=== PATIENT | male | born 1950 | race Caucasian/White ===

== ENCOUNTER 2017-06-22 18:28 | Inpatient (IN) | payer OTHER ==
[~2017-06-22] VITALS: Ht 175.3 cm; Wt 130.2 kg
[2017-06-22 18:28] VITALS: BP 127/71
[2017-06-22] MEDS ORDERED: Digoxin 0.125mg tab ORAL ONE (19:00)
[2017-06-22 20:04] VITALS: BP 125/71
[2017-06-22 20:23] LABS: BASOPHILS % (AUTO) 1.8 % (0.0-2.0); EOSINOPHILS % (AUTO) 5.1 % (0.0-3.0); LYMPHOCYTES % (AUTO) 17.9 % (20.0-45.0); MEAN CORPUSCULAR HEMOGLOBIN 31.3 PG (27.0-31.0); MEAN CORPUSCULAR HGB CONC 35.1 G/DL (32.0-36.0); MEAN CORPUSCULAR VOLUME 89 FL (80-99); MEAN PLATELET VOLUME 6.8 FL (6.5-10.1); MONOCYTES % (AUTO) 9.9 % (1.0-10.0); NEUTROPHILS % (AUTO) 65.3 % (45.0-75.0); PLATELET COUNT 188 K/UL (150-450); RED BLOOD COUNT 4.72 M/UL (4.70-6.10); RED CELL DISTRIBUTION WIDTH 12.9 % (11.6-14.8); WHITE BLOOD COUNT 7.7 K/UL (4.8-10.8)
[2017-06-22 20:30] LABS: APPEARANCE,URINE CLEAR; KETONES,URINE NEGATIVE (NEGATIVE); LEUKOCYTE ESTERASE ,URINE NEGATIVE (NEGATIVE); NITRITE,URINE NEGATIVE (NEGATIVE); PH,URINE 5 (4.5-8.0); PROTEIN,URINE NEGATIVE (NEGATIVE); UROBILINOGEN,URINE NORMAL MG/DL (0.0-1.0)
[2017-06-22 20:44] LABS: INR 1.1 (0.9-1.1)
[2017-06-22 20:45] LABS: TROPONIN I < 0.30 ng/mL (<=0.30)
[2017-06-22 20:46] LABS: ALANINE AMINOTRANSFERASE 31 U/L (3-41); ALBUMIN/GLOBULIN RATIO 1.2 (1.0-2.7); ANION GAP 19 (5-15); ASPARTATE AMINO TRANSFERASE 23 U/L (5-40); CALCIUM 9.3 mg/dL (8.6-10.2); CARBON DIOXIDE 21 mEQ/L (20-30); CHLORIDE 92 mEQ/L (98-107); CREATININE 3.5 mg/dL (0.7-1.2); GLOMERULAR FILTRATION RATE 17.5 mL/min (>60); HEMOLYSIS 17; LIPASE 56 U/L (< 60); POTASSIUM 3.2 mEQ/L (3.4-4.9); SODIUM 132 mEQ/L (135-145); TOTAL PROTEIN 7.3 g/dL (6.6-8.7)
[2017-06-22] MEDS ORDERED: ATORVASTATIN CA40 MG ORAL (20:46)
[2017-06-22] MEDS ORDERED: ASPIRIN EC81 MG ORAL (20:46)
[2017-06-22] MEDS ORDERED: CARVEDILOL25 MG ORAL (20:46)
[2017-06-22] MEDS ORDERED: METOLAZONE5 MG PO (20:46)
[2017-06-22] MEDS ORDERED: ZESTRIL2.5 MG ORAL (20:46)
[2017-06-22] MEDS ORDERED: POTASSIUM CHLO10 MEQ ORAL (20:46)
[2017-06-22] MEDS ORDERED: ELIQUIS5 MG PO (20:46)
[2017-06-22] MEDS ORDERED: LORATADINE10 M2 PO (20:50)
[2017-06-22] MEDS ORDERED: FUROSEMIDE40 MG ORAL (20:50)
[2017-06-22] MEDS ORDERED: AMIODARONE HCL200 MG ORAL (20:54)
[2017-06-22] MEDS ORDERED: GLUCOTROL10 MG ORAL (20:54)
[2017-06-22] MEDS ORDERED: LYRICA200 MG ORAL (20:55)
--- NOTE | 2017-06-22 21:59 | Emergency Room Report ---
History of Present Illness General Chief Complaint: Nausea Source: Patient Present Illness HPI 66-year-old male presents ED for evaluation. Patient states that for the last 8 days he's been feeling nauseous and unable to keep down food. States his abdomen feels distended. Is denying any abdominal pain. Denies any fevers or chills. Denies any chest pain or shortness of breath. Patient has history of CABG. History of a flutter. did not take any of his medications today. No other aggravating relieving factors. 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 Hx Hypertension: Yes Hx Diabetes: Yes Review of Systems All Other Systems: negative except mentioned in HPI Physical Exam Vital Signs Date Time Temp Pulse Resp B/P Pulse Ox O2 Delivery O2 Flow Rate FiO2 06/22/17 18:28 63 14 127/71 100 Room Air 06/22/17 18:52 97.9 Sp02 EP Interpretation: reviewed, normal General Appearance: no apparent distress, alert, GCS 15, non-toxic, obese Head: normocephalic, atraumatic Eyes: bilateral eye PERRL, bilateral eye normal inspection ENT: hearing grossly normal, normal pharynx, no angioedema, normal voice Neck: full range of motion, supple/symm/no masses Respiratory: chest non-tender, lungs clear, normal breath sounds, speaking full sentences Cardiovascular #1: regular rate, rhythm, no edema Cardiovascular #2: 2+ carotid (R), 2+ carotid (L), 2+ radial (R), 2+ radial (L) , 2+ dorsalis pedis (R), 2+ dorsalis pedis (L) Gastrointestinal: normal bowel sounds, non tender, soft, no guarding, no rebound, distended Rectal: deferred Genitourinary: normal inspection, no CVA tenderness Musculoskeletal: back normal, gait/station normal, normal range of motion, non- tender Neurologic: alert, oriented x3, responsive, motor strength/tone normal, sensory intact, speech normal Psychiatric: judgement/insight normal, memory normal, mood/affect normal, no suicidal/homicidal ideation Reflexes: 3+ bicep (R), 3+ bicep (L), 3+ tricep (R), 3+ tricep (L), 3+ knee (R) , 3+ knee (L) Skin: normal color, no rash, warm/dry, well hydrated Lymphatic: no adenopathy Medical Decision Making Diagnostic Impression: Primary Impression: Atrial fibrillation and flutter Additional Impressions: Nausea and vomiting in adult patient Renal insufficiency ER Course Hospital Course 66-year-old male presents to ED with nausea and vomiting x 8 days. 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 After initial history and physical I ordered labs, IV fluids, UA, pain medication and CT scan During assessment patient is having episodes of atrial flutter with tachycardia. Patient states he did not take his medications today. patient was initially triaged incorrectly under name Oleksandr Jackson. labs/orders were redone under this name Labs - no leukocytosis, Hb/Hct stable. BUN/Cr elevated. trop negative. digoxin level sendout EKG - aflutter CXR - cardiomegaly, sternotomy wires patient given digoxin with HR improved. patient has known history of renal insufficiency CT abdomen and pelvis - no acute process because of insurance patient will be transferred I feel this is a highly complex case requiring extensive working including EKG/ Rhythm strip, Xray/CT/US, Blood/urine lab work, repeat exams while in ED, and administration of strong opiates/narcotics for pain control, admission to hospital or close patient follow up. Diagnosis - atrial fibrillation and flutter, nausea/vomiting, renal insufficiency transferred in serious condition Labs Test 06/22/17 20:00 06/22/17 20:13 White Blood Count 7.7 K/UL (4.8-10.8) Red Blood Count 4.72 M/UL (4.70-6.10) Hemoglobin 14.8 G/DL (14.2-18.0) Hematocrit 42.1 % (42.0-52.0) Mean Corpuscular Volume 89 FL (80-99) Mean Corpuscular Hemoglobin 31.3 PG (27.0-31.0) Mean Corpuscular Hemoglobin Concent 35.1 G/DL (32.0-36.0) Red Cell Distribution Width 12.9 % (11.6-14.8) Platelet Count 188 K/UL (150-450) Mean Platelet Volume 6.8 FL (6.5-10.1) Neutrophils (%) (Auto) 65.3 % (45.0-75.0) Lymphocytes (%) (Auto) 17.9 % (20.0-45.0) Monocytes (%) (Auto) 9.9 % (1.0-10.0) Eosinophils (%) (Auto) 5.1 % (0.0-3.0) Basophils (%) (Auto) 1.8 % (0.0-2.0) Prothrombin Time 12.0 SEC (9.30-11.50) Prothromb Time International Ratio 1.1 (0.9-1.1) Activated Partial Thromboplast Time 29 SEC (23-33) Sodium Level 132 mEQ/L (135-145) Potassium Level 3.2 mEQ/L (3.4-4.9) Chloride Level 92 mEQ/L (98-107) Carbon Dioxide Level 21 mEQ/L (20-30) Anion Gap 19 (5-15) Blood Urea Nitrogen 85 mg/dL (7-23) Creatinine 3.5 mg/dL (0.7-1.2) Estimat Glomerular Filtration Rate 17.5 mL/min (>60) Glucose Level 241 mg/dL (74-106) Calcium Level 9.3 mg/dL (8.6-10.2) Total Bilirubin 0.8 mg/dL (0.0-1.2) Aspartate Amino Transf (AST/SGOT) 23 U/L (5-40) Alanine Aminotransferase (ALT/SGPT) 31 U/L (3-41) Alkaline Phosphatase 44 U/L (40-129) Total Creatine Kinase 161 U/L (38-174) Creatine Kinase MB 3.0 ng/mL (< 6.7) Creatine Kinase MB Relative Index 1.8 Troponin I < 0.30 ng/mL (<=0.30) Total Protein 7.3 g/dL (6.6-8.7) Albumin 4.1 g/dL (3.5-5.2) Globulin 3.2 g/dL Albumin/Globulin Ratio 1.2 (1.0-2.7) Lipase 56 U/L (< 60) Digoxin Level ng/mL (0.5-2.0) Urine Color Pale yellow Urine Appearance Clear Urine pH 5 (4.5-8.0) Urine Specific Schaller 1.015 (1.005-1.035) Urine Protein Negative (NEGATIVE) Urine Glucose (UA) 3+ (NEGATIVE) Urine Ketones Negative (NEGATIVE) Urine Occult Blood Negative (NEGATIVE) Urine Nitrite Negative (NEGATIVE) Urine Bilirubin Negative (NEGATIVE) Urine Urobilinogen Normal MG/DL (0.0-1.0) Urine Leukocyte Esterase Negative (NEGATIVE) EKG Diagnostic Results Rate: normal Rhythm: other - aflutter ST Segments: no acute changes ASA given to the pt in ED: No Rhythm Strip Diag. Results EP Interpretation: yes Rhythm: no PVC's, no ectopy Chest X-Ray Diagnostic Results Chest X-Ray Diagnostic Results : Chest X-Ray Ordered: Yes # of Views/Limited/Complete: 1 View Indication: Shortness of Breath EP Interpretation: Yes Interpretation: no consolidation, no effusion, no pneumothorax, other - cardiomegaly. sternotomy wires Impression: No acute disease Interpreting ER Provider: Electronically signed by Damon Bailey MD CT/MRI/US Diagnostic Results CT/MRI/US Diagnostic Results : Imaging Test Ordered: CT A/P Impression no acute process Last Vital Signs Date Time Temp Pulse Resp B/P Pulse Ox O2 Delivery O2 Flow Rate FiO2 06/22/17 18:52 97.9 84 18 111/69 94 Room Air Status: improved Disposition: [facility] Condition: Serious Referrals: [facility],REFERRING (PCP) DAMON BAILEY M.D. Jun 22, 2017 21:58
[2017-06-22 22:12] VITALS: BP 123/77
[2017-06-23] VITALS (7 sets, daily range): BP systolic 109–131; BP diastolic 47–76
[2017-06-23] MEDS: Metoprolol 25mg tab ORAL SCH ×2 (10:38→20:52)
[2017-06-23] MEDS: Eliquis 2.5mg tablet ORAL SCH ×2 (10:39→18:24)
[2017-06-23] MEDS: Pantoprazole Inj IVP SCH (10:39)
--- NOTE | 2017-06-23 11:46 | Diagnostic Imaging Report ---
Indication: Dyspnea Comparison: None A single view chest radiograph was obtained. Findings: No definite infiltrate or pulmonary vascular congestion identified. Sternotomy noted. The heart is and normal in size. The aorta is mildly enlarged consistent with atherosclerotic vascular disease. The bones are osteopenic. Impression: No acute disease
--- NOTE | 2017-06-23 12:30 | History and Physical Report ---
DATE OF ADMISSION: 06/23/2017 CHIEF COMPLAINT: Nausea and vomiting for 8 days, dehydration, acute on chronic renal failure, atrial fibrillation/flutter with rapid ventricular response. HISTORY OF PRESENT ILLNESS: This is a 66-year-old male, he has a history of ischemic cardiomyopathy, status post two vessel CABG in 2012. He has a history of chronic kidney disease, diabetes, and hypertension. He presented from home with complaints of 8 days of intractable nausea and vomiting. According to the patient, he has been unable to tolerate any POs including liquids. He states he has had normal bowel movements, although less frequent. He also states he has had some swelling in the right lower extremity for the last year. He denies any ill contacts. No recent travel. On evaluation in the emergency room, the patient was noted to have a creatinine of 3.5 with a BUN of 85. According to the patient, his baseline creatinine runs between 3 and 3.5. In light of the patient's persistent nausea and vomiting, he is now admitted for further evaluation and care. PAST MEDICAL HISTORY: His past medical history as above. He has a history of hypertension, diabetes, chronic kidney disease, history of blindness in the left eye, history of cataracts, and history of LV thrombus. CURRENT MEDICATIONS: The patient does not recall. ALLERGIES: None. FAMILY HISTORY: Significant for heart disease and " bone cancer". SOCIAL HISTORY: Negative for tobacco, ethanol, and drugs. REVIEW OF SYSTEMS: General: No fever or chills. HEENT: No headaches or visual changes. Cardiopulmonary: No chest pain or shortness of breath. Gastrointestinal: Positive nausea and vomiting. No diarrhea. Genitourinary: No urgency or frequency. Musculoskeletal: No dependent swelling. Neurologic: No evidence of seizures. PHYSICAL EXAMINATION: GENERAL: The patient is a well-developed male, in no apparent distress. He is awake and alert. VITAL SIGNS: Temperature was 98.7 degrees, pulse 119, and blood pressure 117/65. HEENT: His pupils are equal, round, and reactive to light. Oropharynx is clear. NECK: Supple. HEART: Regular. LUNGS: Clear. ABDOMEN: Soft, nontender, and nondistended. EXTREMITIES: Without clubbing or cyanosis. There is 3+ edema in the left lower extremity and 2+ in the right lower extremity. LABORATORY AND DIAGNOSTIC DATA: Coags are normal. White count 7, hemoglobin 14, hematocrit 42, and platelets 188,000. Sodium 132, potassium 3.2, chloride 95, bicarbonate 21, BUN 85, creatinine 3.5, and glucose of 241. Amylase, lipase, and LFTs were unremarkable. UA was clear. ASSESSMENT: This is a pleasant male admitted with intractable nausea and vomiting, acute on chronic renal failure, atrial fibrillation with rapid ventricular response. 1. Acute on chronic renal failure. 2. Intractable nausea and vomiting, unclear etiology. 3. Dehydration. 4. Hypertension. 5. Diabetes. 6. History of ischemic cardiomyopathy. 7. Atrial fibrillation/flutter with rapid ventricular response. PLAN: IV hydration and antiemetic therapy. The patient has a family member, who is currently bringing in his medications. We will resume the patient's Eliquis. We will start the patient on beta-perez for rate control. GI, Renal, and Cardiology consultations will be obtained. Jun Grayson M.D. DR: SHAUN JOB#: [id number] CC:
--- NOTE | 2017-06-23 16:01 | Diagnostic Imaging Report ---
Indication:Elevated Bun and Creatinine. Technique: Grayscale and duplex Doppler imaging of the kidneys performed. Comparison: None Findings: Renal echogenicity is normal. There is an echogenic lesion in the left kidney probably an angiomyolipoma measuring 1 cm. Left renal cyst is 1.3 CM. Right renal cyst 2.4 CM demonstrated. Other smaller cysts are noted as well. There is no hydronephrosis. Both kidneys measure between 10 and 11 cm. IVC and urinary bladder are unremarkable. The liver appears echogenic consistent with fatty infiltration. Impression: Bilateral renal cysts. 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
[2017-06-24] VITALS: BP 126/77
--- NOTE | 2017-06-24 01:00 | Consultation ---
DATE OF CONSULTATION: 06/23/2017 CARDIOLOGY CONSULTATION CONSULTING PHYSICIAN: Oleksandr Coats M.D. REQUESTING PHYSICIAN: Jun Grayson M.D. REASON FOR CONSULTATION: Atrial flutter in the setting of ischemic heart disease. HISTORY OF PRESENT ILLNESS: This is a 66-year-old male with ischemic heart disease, prior coronary artery bypass graft in 2012, and a history of paroxysmal atrial flutter/fibrillation. He presented to the hospital with over a week of intractable nausea and vomiting. He has not been able to tolerate any liquids although he has had normal bowel movements. He has had some swelling in his right lower extremity for about a year with no recent change. He was admitted to the hospital with signs of acute renal failure and hypovolemia. He also had rapid atrial flutter, but now is rate controlled. He has not had any chest pain. PAST MEDICAL HISTORY: Coronary artery disease with prior coronary artery bypass graft, hypertension, paroxysmal atrial fibrillation/flutter, type 2 diabetes mellitus, chronic kidney disease, left eye blindness, and history of atrial thrombus. MEDICATIONS: Reviewed and reconciled. ALLERGIES: None. SOCIAL HISTORY: Negative for smoking, alcohol, or substance abuse. FAMILY HISTORY: Notable for heart disease and bone cancers in some family members. REVIEW OF SYSTEMS: Notable for consideration for cardioversion in 2016 that was canceled due to the presence of a thrombus. He has been on anticoagulation since. PHYSICAL EXAMINATION: GENERAL: A well developed and well nourished, in no distress. VITAL SIGNS: Afebrile. Blood pressure 124/66, pulse 86, and respirations 18. HEENT: Conjunctivae are pink. Oropharynx clear. NECK: Supple. Jugular venous pressure normal. LUNGS: Clear. CARDIAC: Irregularly irregular. Normal S1 and S2 with no murmur. Median sternotomy scar. ABDOMEN: Obese. EXTREMITIES: With 1+ to 2+ dependent edema on the right and 2+ to 3+ dependent edema on the left lower extremity. LABORATORY DATA: Laboratories reviewed. EKG, atrial flutter, saw tooth pattern. No acute changes otherwise. IMPRESSION: 1. Intractable nausea and vomiting. 2. Hypovolemia and dehydration. 3. Acute on chronic renal failure due to acute tubular necrosis. 4. Atrial flutter with rapid ventricular response, now rate controlled. 5. Ischemic cardiomyopathy with chronic stable angina. 6. Type 2 diabetes mellitus complications. 7. History of atrial thrombus, on anticoagulation. PLAN: 1. Continue cardioembolic prophylaxis with apixaban. 2. Beta-perez for rate control. 3. Gastrointestinal workup for etiology of vomiting and nausea. 4. Intravenous fluid hydration. 5. Cardiac monitoring. 6. Further consideration for cardioversion once gastrointestinal status is stabilized. 7. Check thyroid function. Oleksandr Coats M.D. DR: FIDENCIO JOB#: [id number] CC:
[2017-06-24] MEDS ORDERED: LATANOPROST2.5 ML BOTH EYES (03:03)
[2017-06-24] MEDS ORDERED: TRUSOPT10 ML LEFT EYE ×2 (03:03→07:03)
[2017-06-24] MEDS ORDERED: BRIMONIDINE TART5 ML LEFT EYE (03:03)
[2017-06-24 04:00] VITALS: BP 138/75
[2017-06-24 07:43] VITALS: BP 131/73
[2017-06-24] MEDS: Pantoprazole Inj IVP SCH (08:24)
[2017-06-24] MEDS: Docusate 250mg cap ORAL SCH ×2 (08:24→17:30)
[2017-06-24] MEDS: Eliquis 2.5mg tablet ORAL SCH ×2 (08:24→17:30)
[2017-06-24] MEDS: traMADol 50mg tab ORAL PRN ×2 (08:25→16:17)
[2017-06-24] MEDS: Metoprolol 25mg tab ORAL SCH (08:26)
[2017-06-24] MEDS ORDERED: Milk of Magnesia 30ml Ud ORAL PRN (08:30)
[2017-06-24 08:31] LABS: MAGNESIUM 2.1 mg/dL (1.7-2.5)
[2017-06-24 08:37] LABS: ALBUMIN/GLOBULIN RATIO 1.4 (1.0-2.7); CALCIUM 9.4 mg/dL (8.6-10.2); CREATININE 2.8 mg/dL (0.7-1.2); GLOMERULAR FILTRATION RATE 22.6 mL/min (>60); POTASSIUM 3.7 mEQ/L (3.4-4.9); TOTAL PROTEIN 7.1 g/dL (6.6-8.7)
[2017-06-24 08:42] LABS: THYROID STIMULATING HORMONE 10.05 uIU/mL (0.300-4.500)
[2017-06-24] MEDS ORDERED: Docusate 250mg cap ORAL SCH (09:00)
--- NOTE | 2017-06-24 09:05 | Diagnostic Imaging Report ---
Indication: Abdominal pain Technique: Continuous helical transaxial imaging of the abdomen and pelvis was obtained from the lung bases to the pubic symphysis. No intravenous contrast was administered. Coronal 2-D reformats were also obtained. Total Dose length Product (DLP): [address] Dose Index Volume (CTDIvol): 27 mGy Comparison: none Findings: Lung bases are clear. Aorta is calcified. Gallbladder is grossly unremarkable. Suggestion of low density foci within the kidneys, nonspecific on this exam done without contrast material. Mild fusiform dilatation of the lower abdominal aorta having a maximum diameter of about 3.1 CM noted. No evidence of bowel obstruction. Urinary bladder is unremarkable. There are bilateral inguinal hernias containing fat slightly larger on the left noted. Impression: No acute findings appreciated. Atherosclerotic disease Low-density lesions in both kidneys incompletely assessed. Bilateral inguinal hernias containing fat slightly larger on the left. Normal appendix [facility] has communicated the preliminary results to the Emergency Department. Their findings are largely concordant with this report. The CT scanner at [facility] is accredited by the [employer] and the scans are performed using dose optimization techniques as appropriate to a performed exam including Automatic Exposure control.
--- NOTE | 2017-06-24 09:47 | General Progress Note ---
Assessment/Plan Problem List: (1) Azotemia ICD Codes: R79.89 - Other specified abnormal findings of blood chemistry SNOMED: 086830909 (2) Renal insufficiency ICD Codes: N28.9 - Disorder of kidney and ureter, unspecified; I48.92 - Unspecified atrial flutter SNOMED: 934687656 (3) Nausea and vomiting in adult patient ICD Codes: R11.2 - Nausea with vomiting, unspecified; I48.92 - Unspecified atrial flutter SNOMED: 09904230 (4) Atrial fibrillation and flutter ICD Codes: I48.91 - Unspecified atrial fibrillation; I48.92 - Unspecified atrial flutter SNOMED: 396364207 (5) Systolic and diastolic CHF, chronic ICD Codes: I50.42 - Chronic combined systolic (congestive) and diastolic ( congestive) heart failure SNOMED: 72526400, 621366543641542 Status: stable, progressing Assessment/Plan cont ivf. monitor renal fxn resumed home meds- except acei on anticoagulation advance diet laxatives echo dc planning tomorrow Subjective ROS Limited/Unobtainable: No Constitutional: Reports: malaise, weakness HEENT: Reports: no symptoms Cardiovascular: Reports: no symptoms Respiratory: Reports: no symptoms Gastrointestinal/Abdominal: Reports: nausea Genitourinary: Reports: no symptoms Neurologic/Psychiatric: Reports: no symptoms Endocrine: Reports: no symptoms Hematologic/Lymphatic: Reports: anemia Allergies: Coded Allergies: MILK (Verified Allergy, Unknown, 06/22/17) SOY (Verified Allergy, Unknown, 06/22/17) All Systems: reviewed and negative except above Subjective no events. no vomiting. less nausea. pt home meds reviewed. passing gas but no bowel movements. Objective Last 24 Hour Vital Signs Date Time Temp Pulse Resp B/P Pulse Ox O2 Delivery O2 Flow Rate FiO2 06/24/17 08:26 65 131/73 06/24/17 07:43 97.5 99 18 131/73 97 Room Air 06/24/17 07:37 89 06/24/17 04:00 60 06/24/17 04:00 97.4 63 24 138/75 96 Room Air 06/24/17 00:00 98.4 55 20 126/77 95 Room Air 06/24/17 00:00 55 06/23/17 20:52 70 131/76 06/23/17 20:00 60 06/23/17 20:00 98.1 69 20 131/76 94 06/23/17 16:19 98.1 65 20 117/69 97 Room Air 06/23/17 16:00 65 06/23/17 12:46 98.1 06/23/17 12:00 66 06/23/17 11:48 97.0 64 18 109/55 98 Room Air 06/23/17 10:38 75 110/70 Intake and Output 06/23/17 06/24/17 19:00 07:00 Intake Total 975 ml 750 ml Output Total 1650 ml Balance 975 ml -900 ml Intake Oral 600 ml IV Total 75 ml 750 ml Other 300 ml Output Urine Total 1650 ml # Voids 2 4 # Bowel Movements 1 1 Laboratory Tests 06/24/17 07:50: Sodium Level 136, Potassium Level 3.7, Chloride Level 98, Carbon Dioxide Level 24, Anion Gap 14, Blood Urea Nitrogen 65H, Creatinine 2.8H, Estimat Glomerular Filtration Rate 22.6, Glucose Level 269H, Calcium Level 9.4, Magnesium Level 2.1 , Total Bilirubin 1.0, Aspartate Amino Transf (AST/SGOT) 26, Alanine Aminotransferase (ALT/SGPT) 31, Alkaline Phosphatase 46, Pro-B-Type Natriuretic Peptide 412H, Total Protein 7.1, Albumin 4.2, Globulin 2.9, Albumin/Globulin Ratio 1.4, Thyroid Stimulating Hormone (TSH) 10.050H Height (Feet): 5 Height (Inches): 9.00 Weight (Pounds): 287 General Appearance: WD/WN, alert Neck: supple Cardiovascular: regular rhythm Respiratory/Chest: lungs clear, normal breath sounds Abdomen: normal bowel sounds, non tender, soft, no organomegaly Edema: no edema noted Arm (L), no edema noted Arm (R), no edema noted Leg (L), no edema noted Leg (R), no edema noted Pedal (L), no edema noted Pedal (R), no edema noted Generalized Neurologic: alert Lymphatic: normal anterior cervical (L), normal anterior cervical (R), normal axillary (L), normal axillary (R), normal inguinal (L), normal inguinal (R), normal other, normal posterior cervical (L), normal posterior cervical (R), normal submandibular (L), normal submandibular (R), normal supraclavicular (L), normal supraclavicular (R) LEIA PRATHER Jun 24, 2017 09:46
[2017-06-24] MEDS: Amiodarone 200mg tab ORAL SCH ×2 (10:00→21:38)
[2017-06-24] MEDS: Carvedilol 25mg Tab ORAL SCH ×2 (10:00→21:00)
[2017-06-24] MEDS: Aspirin EC 81mg tab ORAL SCH (10:00)
[2017-06-24] MEDS: Dorzolamide 2% Btl LEFT EYE SCH ×2 (11:20→17:30)
[2017-06-24] MEDS: Brimonidine 0.2% Opth Sol LEFT EYE SCH ×2 (11:20→17:30)
[2017-06-24] MEDS: GlipiZIDE 10mg tab ORAL SCH ×2 (11:20→16:16)
[2017-06-24 12:05] VITALS: BP 132/75
[2017-06-24] MEDS ORDERED: D5NS 1000ml IV ONE (15:18)
--- NOTE | 2017-06-24 16:12 | Cardiology Report ---
APPROVED REPORT EXAM: Two-dimensional and M-mode echocardiogram with Doppler and color Doppler. INDICATION Atrial Flutter M-Mode DIMENSIONS IVSd1.5 (0.7-1.1cm)Left Atrium (MM)4.8 (1.6-4.0cm) LVDd4.3 (3.5-5.6cm)Aortic Root3.8 (2.0-3.7cm) PWd0.9 (0.7-1.1cm)Aortic Cusp Exc.2.0 (1.5-2.0cm) LVDs2.6 (2.5-4.0cm) PWs2.2 cm Technically difficult study due to poor acoustic windows. Study quality precludes accurate assessment of regional wall motion. Mild left ventricular enlargement by 2D. Probably normal left ventricular systolic function and wall motion. Left ventricular ejection fraction estimated to be 55 %. Mild left ventricular hypertrophy. No evidence of pericardial fat or effusion. Mild right atrial and right ventricular enlargement. Left atrial chamber size is within normal limits. Mild focal aortic valve sclerosis with adequate cusp excursion. Mildly thickened mitral valve leaflets with normal excursion. Mild mitral annulus and aortic root calcification. Pulmonic valve not well visualized. Normal tricuspid valve structure. IVC is normal in size with physiologic collapse. A color flow and spectral Doppler study was performed and revealed: No aortic regurgitation. No mitral regurgitation. Mitral inflow velocitie nondiagnostic Mild tricuspid regurgitation. Tricuspid systolic velocities suggests peak right ventricular systolic pressure of 27 mmHg. No pulmonic regurgitation present.
[2017-06-24 16:20] VITALS: BP 93/58
[2017-06-24 20:00] VITALS: BP 108/64
[2017-06-24] MEDS ORDERED: Atorvastatin 80mg tab ORAL SCH (21:00)
[2017-06-25] VITALS: BP 108/66
[2017-06-25] MEDS: traMADol 50mg tab ORAL PRN ×2 (00:31→08:18)
[2017-06-25 04:00] VITALS: BP 114/60
[2017-06-25] MEDS: GlipiZIDE 10mg tab ORAL SCH (06:02)
[2017-06-25 07:15] LABS: ALBUMIN/GLOBULIN RATIO 1.3 (1.0-2.7); CALCIUM 9.1 mg/dL (8.6-10.2); CREATININE 2.8 mg/dL (0.7-1.2); GLOMERULAR FILTRATION RATE 22.6 mL/min (>60); POTASSIUM 3.5 mEQ/L (3.4-4.9); TOTAL PROTEIN 6.9 g/dL (6.6-8.7)
[2017-06-25 08:14] VITALS: BP 113/65
[2017-06-25] MEDS: Pantoprazole Inj IVP SCH (08:17)
[2017-06-25] MEDS: Amiodarone 200mg tab ORAL SCH (08:18)
[2017-06-25] MEDS: Docusate 250mg cap ORAL SCH (08:18)
[2017-06-25] MEDS: Eliquis 2.5mg tablet ORAL SCH (08:19)
[2017-06-25] MEDS: Dorzolamide 2% Btl LEFT EYE SCH (08:19)
[2017-06-25] MEDS: Aspirin EC 81mg tab ORAL SCH (08:19)
[2017-06-25] MEDS: Brimonidine 0.2% Opth Sol LEFT EYE SCH (08:20)
[2017-06-25] MEDS: Carvedilol 25mg Tab ORAL SCH (08:20)
--- NOTE | 2017-06-25 08:48 | Cardiology Report ---
APPROVED REPORT EKG Measurement Heart [id number] Atrial flutter with variable AV block Left axis deviation Low voltage QRS Abnormal ECG
[2017-06-25 10:16] LABS: EOSINOPHILS % (AUTO) 7.1 % (0.0-3.0); LYMPHOCYTES % (AUTO) 18.7 % (20.0-45.0); MEAN CORPUSCULAR HEMOGLOBIN 30.2 PG (27.0-31.0); MEAN CORPUSCULAR HGB CONC 32.7 G/DL (32.0-36.0); MEAN CORPUSCULAR VOLUME 92 FL (80-99); MEAN PLATELET VOLUME 6.8 FL (6.5-10.1); MONOCYTES % (AUTO) 9.9 % (1.0-10.0); NEUTROPHILS % (AUTO) 63.4 % (45.0-75.0); PLATELET COUNT 173 K/UL (150-450); RED BLOOD COUNT 4.78 M/UL (4.70-6.10); RED CELL DISTRIBUTION WIDTH 12.9 % (11.6-14.8); WHITE BLOOD COUNT 7.2 K/UL (4.8-10.8)
--- NOTE | 2017-06-25 10:22 | General Progress Note ---
Assessment/Plan Assessment/Plan GI CONSULT Dictated Symptoms significantly improved with conservative management. Will check stool OB and cultures Advised patient to have outpatient EGD/Colon. Thank you Jesus Alvarez MD Subjective Allergies: Coded Allergies: MILK (Verified Allergy, Unknown, 06/22/17) SOY (Verified Allergy, Unknown, 06/22/17) Objective Last 24 Hour Vital Signs Date Time Temp Pulse Resp B/P Pulse Ox O2 Delivery O2 Flow Rate FiO2 06/25/17 08:20 56 113/65 06/25/17 08:14 98.4 56 20 113/65 95 Room Air 06/25/17 08:00 59 06/25/17 04:00 58 06/25/17 04:00 97.7 69 18 114/60 96 Room Air 06/25/17 00:00 97.3 51 18 108/66 96 Room Air 06/25/17 00:00 57 06/24/17 21:00 56 108/64 06/24/17 20:00 97.9 54 18 108/64 96 Room Air 06/24/17 20:00 55 06/24/17 16:20 97.5 56 18 93/58 96 Room Air 06/24/17 16:00 64 06/24/17 12:05 65 06/24/17 12:05 97.7 55 18 132/75 97 Room Air Intake and Output 06/24/17 06/25/17 19:00 07:00 Intake Total 600 ml 2090 ml Output Total 400 ml 800 ml Balance 200 ml 1290 ml Intake Oral 600 ml 640 ml IV Total 1450 ml Output Urine Total 400 ml 800 ml # Bowel Movements 4 Laboratory Tests 06/25/17 05:35: Sodium Level 141, Potassium Level 3.5, Chloride Level 100, Carbon Dioxide Level 27, Anion Gap 14, Blood Urea Nitrogen 57H, Creatinine 2.8H, Estimat Glomerular Filtration Rate 22.6, Glucose Level 137#H, Calcium Level 9.1, Total Bilirubin 0.7, Aspartate Amino Transf (AST/SGOT) 21, Alanine Aminotransferase (ALT/SGPT) 28, Alkaline Phosphatase 45, Total Protein 6.9, Albumin 4.0, Globulin 2.9, Albumin/Globulin Ratio 1.3 Height (Feet): 5 Height (Inches): 9.00 Weight (Pounds): 287 JESUS ALVAREZ Jun 25, 2017 10:22
[2017-06-25 10:46] LABS: HEMOLYSIS 5; IRON 75 ug/dL (59-158); TOTAL IRON BINDING CAPACITY 313 ug/dL (250-400)
[2017-06-25 11:31] VITALS: BP 119/71
--- NOTE | 2017-06-25 14:15 | Consultation ---
DATE OF CONSULTATION: 06/25/2017 GASTROLOGY CONSULTATION CHIEF COMPLAINT: I was asked to see this patient for evaluation of nausea and vomiting. HISTORY OF PRESENT ILLNESS: The patient is a pleasant 66-year-old white male with multiple medical problems including ischemic cardiomyopathy, who comes into the hospital due to one week of nausea and vomiting. The patient was unable to keep a much oral intake and therefore came to the hospital where he was found to have acute on chronic renal failure. Nausea has been improving. He is able to keep some fluids down now. The patient has had some intermittent constipation, but yesterday he had some bowel movements from the laxative use. Prior to that he had some intermittent diarrhea and constipation, which is alternating. He denies any pyrosis and he has never had endoscopy or colonoscopy. He does not take any medications. He had no previous significant gastrointestinal history. PAST MEDICAL HISTORY: Coronary artery disease, history of coronary artery bypass graft procedure, hypertension, paroxysmal atrial fibrillation and flutter, type 2 diabetes, chronic kidney disease, left eye blindness, and history of atrial . MEDICATIONS: See the chart list for details. ALLERGIES: None. FAMILY HISTORY: Notable for heart disease and bone cancers. SOCIAL HISTORY: The patient does not smoke or drink alcohol or use drugs. REVIEW OF SYSTEMS: Negative. PHYSICAL EXAMINATION: GENERAL: The patient is a pleasant, obese white man seen in his room. HEENT: Normocephalic and atraumatic. Sclerae anicteric. Oropharynx clear. NECK: Supple. CHEST: Clear to auscultation. CARDIOVASCULAR: Revealed a regular rate. ABDOMEN: Soft. Good bowel sounds. There is no tenderness. EXTREMITIES: Revealed no edema. LABORATORY DATA: Noted. ASSESSMENT: This patient presents with nausea, vomiting, and bowel irregularity for about a week or so which has now resolved. He is able to keep some oral intake and now he can be continue to be monitored conservatively. I will check a stool occult blood and stool cultures to rule out any significant pathology. I have also strongly recommended to the patient to undergo an outpatient colonoscopy for screening purposes. An outpatient endoscopy can be done at the same time, to rule out any peptic ulcer disease. The patient does take aspirin and Eliquis, which can increase the risk of the results of the ulcer. RECOMMENDATIONS: 1. Continue conservative management. 2. Proton pump inhibitor. 3. Check stool occult blood. 4. Check cultures. 5. Outpatient endoscopy or colonoscopy. Thank you for asking me to participate in care of this patient. Jesus Alvarez M.D. DR: YESI JOB#: [id number] CC:
--- NOTE | 2017-06-26 03:00 | Progress Note ---
DATE: 06/25/2017 CARDIOLOGY PROGRESS NOTE SUBJECTIVE: The patient is tolerating diet. No abdominal pain. No nausea or vomiting. Bowel movement noted. Monitored rhythm atrial flutter, rate controlled. No chest pain or shortness of breath. OBJECTIVE: VITAL SIGNS: Blood pressure 113/65, pulse 56, and respirations 20. NECK: Supple. LUNGS: Clear. CARDIAC: Irregular. Normal S1 and S2. ABDOMEN: Soft and nontender. EXTREMITIES: No edema. IMPRESSION: 1. Recovered gastroparesis and partial small bowel obstruction. 2. Paroxysmal atrial flutter, rate controlled. 3. Chronic diastolic and systolic congestive heart failure. 4. Coagulopathy due to Eliquis. 5. Hypertension, controlled. 6. Chronic kidney disease. PLAN: 1. Continue diet. 2. Outpatient endoscopy and colonoscopy. 3. Consideration for outpatient ablation of atrial flutter and cardioversion once insurance authorization obtained. 4. Continue cardioembolic prophylaxis with Eliquis. 5. Maintain current anti-failure regimen. 6. Avoid FLORI inhibitor due to renal disease. Oleksandr Coats M.D. DR: FIDENCIO JOB#: [id number] CC:
--- NOTE | 2017-06-26 05:00 | Progress Note ---
DATE: 06/24/2017 LATE ENTRY CARDIOLOGY PROGRESS NOTE: SUBJECTIVE: The patient was seen and evaluated. He has no chest pain, palpitations, or shortness of breath. He remains constipated. He has not had any nausea or vomiting. He is tolerating a liquid diet. OBJECTIVE: VITAL SIGNS: Blood pressure is 131/73, 65 to 99 is the heart rate, respiratory rate 18, and afebrile. Monitored rhythm, atrial flutter. NECK: Supple. LUNGS: Clear. CARDIAC: Irregularly irregular. Normal S1 and S2. ABDOMEN: Slightly distended. Soft. No edema and no tenderness. DIAGNOSTIC DATA: Echocardiogram performed today is notable for normal ejection fraction, left atrial size of 4.8 cm and mild tricuspid regurgitation with normal PA systolic pressure. IMPRESSION: 1. Recovering nausea, vomiting, and constipation. 2. Atrial flutter. 3. Hypertensive heart disease. 4. Chronic kidney disease. 5. Chronic systolic and diastolic congestive heart failure. PLAN: 1. Maintain anticoagulation. 2. Optimize antihypertensives. 3. Monitor volume status and cardiorenal parameters. 4. Consideration for outpatient of cardioversion and aflutter ablation, once authorization obtained. Oleksandr Coats M.D. DR: Kierra JOB#: [id number] CC:
--- NOTE | 2017-06-26 19:59 | Discharge Summary ---
Discharge Summary Hospital Course Date of Admission Jun 23, 2017 at 01:15 Date of Discharge Jun 25, 2017 at 13:50 Admitting Diagnosis aflutter, nausea HPI Oleksandr Carroll is a 66 year old male who was admitted on Jun 23, 2017 at 01:15 for Aflutter,Nausea Hospital Course [id number] Discharge Discharge Disposition Patient was discharged to Home () Discharge Diagnoses: Matilda Saavedra NP Jun 26, 2017 19:59
--- NOTE | 2017-06-27 00:30 | Discharge Summary 2 SIG ---
DATE OF ADMISSION: 06/23/2017 DATE OF DISCHARGE: 06/25/2017 CONSULTANTS: 1. Jesus Alvarez M.D. 2. Oleksandr Coats M.D. BRIEF HOSPITAL COURSE: The patient is a 66-year-old male, who has a history of ischemic cardiomyopathy, status post two-vessel CABG in 2012, history of chronic kidney disease, diabetes, and hypertension, presented from home with complaints of eight days intractable nausea and vomiting and unable to tolerate any p.o. including liquids. He had normal bowel movement although less frequent and also had some swelling in the right lower extremity. On evaluation at ED, the patient was noted to have creatinine of 3.5 with BUN of 85. In light of the patient's persistent nausea and vomiting, he was admitted to telemetry for evaluation of intractable nausea and vomiting, renal failure and atrial fibrillation. EKG was in atrial flutter with saw tooth pattern and no acute changes seen. He was continued with cardioembolic prophylaxis with apixaban and beta-perez, Coreg 25 mg q.12 h. for rate control. He was given proton-pump inhibitors and was recommended endoscopy and colonoscopy. Symptoms improved with conservative management. Diet was advanced. He was given laxatives and abdominal and pelvic CT scan showed no acute findings. The patient was eventually discharged home. FINAL DIAGNOSES: 1. Nausea, vomiting, and constipation. 2. Paroxysmal Atrial flutter. 3. Hypertensive heart disease. 4. Chronic kidney disease. 5. Chronic systolic and diastolic congestive heart failure. 6. Coagulopathy due to Eliquis. 7. Recovered gastroparesis. DISPOSITION: The patient was discharged home. MEDICATIONS: Refer to medication list. FOLLOWUP: The patient to follow up with PMD in a week. Jun Grayson M.D. I have been assigned to dictate discharge summary on this account and I was not involved in the patient's management. Matilda Saavedra N.P. DR: Toya JOB#: [id number] CC: DANIEL
== END 2017-06-25 13:50 | disposition home or self-care (01) | DRG 683 ==
LOC: EMR 19:17 → 2E 06-23 01:15 → EDBEDREQ 06-23 01:38 → 2E 06-23 02:18
DX: N17.0 Acute kidney failure with tubular necrosis (principal); I13.0 Hypertensive heart and chronic kidney disease with heart failure and stage 1 through stage 4 chronic kidney disease, or unspecified chronic kidney disease; K56.60 Unspecified intestinal obstruction; I48.91 Unspecified atrial fibrillation; E11.22 Type 2 diabetes mellitus with diabetic chronic kidney disease; K31.84 Gastroparesis; I50.42 Chronic combined systolic (congestive) and diastolic (congestive) heart failure; I48.92 Unspecified atrial flutter; E86.0 Dehydration; E11.9 Type 2 diabetes mellitus without complications; N18.9 Chronic kidney disease, unspecified; I25.5 Ischemic cardiomyopathy; I25.10 Atherosclerotic heart disease of native coronary artery without angina pectoris; Z95.1 Presence of aortocoronary bypass graft; H54.42 Blindness, left eye, normal vision right eye; Z79.01 Long term (current) use of anticoagulants
CPT/HCPCS: 36415; 71010; 74176; 76775; 80053; 80162; 81003; 82550; 82553; 82962; 83540; 83550; 83690; 83735; 83880; 84443; 84484; 85025; 85610; 85730; 93005; 93306; J2405

== ENCOUNTER 2020-08-16 15:44 | Emergency (ER) | payer OTHER ==
[~2020-08-16] VITALS: Ht 172.7 cm; Wt 127.0 kg
[~2020-08-16 15:44] MED LIST: AMIODARONE HCL200 MG ORAL; ASPIRIN EC81 MG ORAL; ATORVASTATIN CA40 MG ORAL; BRIMONIDINE TART5 ML LEFT EYE; CARVEDILOL25 MG ORAL; ELIQUIS5 MG PO; FUROSEMIDE40 MG ORAL; GLUCOTROL10 MG ORAL; LATANOPROST2.5 ML BOTH EYES; LORATADINE10 M2 PO; LYRICA200 MG ORAL; METOLAZONE5 MG PO; POTASSIUM CHLO10 MEQ ORAL; TRUSOPT10 ML LEFT EYE; ZESTRIL2.5 MG ORAL
[2020-08-16 15:50] VITALS: BP 136/81
[2020-08-16] MEDS ORDERED: TRAZODONE HCL150 MG ORAL (16:05)
[2020-08-16] MEDS ORDERED: Oxymetazoline 0.05% Na Spray 30ml NASAL ONE ×2 (16:09→16:15)
[2020-08-16 17:44] LABS: BASOPHILS % (AUTO) 0.8 % (0.0-2.0); EOSINOPHILS % (AUTO) 2.7 % (0.0-3.0); HEMATOCRIT 47.2 % (42.0-52.0); HEMOGLOBIN 15.5 G/DL (14.2-18.0); MEAN CORPUSCULAR VOLUME 88 FL (80-99); MONOCYTES % (AUTO) 6.7 % (1.0-10.0); NEUTROPHILS % (AUTO) 79.8 % (45.0-75.0); PLATELET COUNT 208 K/UL (150-450); RED BLOOD COUNT 5.36 M/UL (4.70-6.10); RED CELL DISTRIBUTION WIDTH 13.8 % (11.6-14.8); WHITE BLOOD COUNT 11.1 K/UL (4.8-10.8)
[2020-08-16 17:49] LABS: CALCIUM 9.5 MG/DL (8.5-10.1); CREATININE 1.5 MG/DL (0.55-1.30); POTASSIUM 4.6 MMOL/L (3.5-5.1)
[2020-08-16 17:54] LABS: ALBUMIN 3.8 G/DL (3.4-5.0); ALBUMIN/GLOBULIN RATIO 1.3 (1.0-2.7); BILIRUBIN,TOTAL 0.5 MG/DL (0.2-1.0)
--- NOTE | 2020-08-16 18:06 | Emergency Room Report ---
History of Present Illness General Chief Complaint: Nosebleed Source: Patient, Medical Record, EMS Present Illness HPI The patient states that about an hour prior to arrival he spontaneously had a nosebleed. He denies trauma. He has never had a nosebleed like this in the past. He states that he does not believe that he is on any anticoagulation medications. However, he states he does not know what medications he is on. He states he has a caregiver. He states that his caregiver handles all his medications. He does note that his caregiver did not show up today. He denies headache or neck pain. He states he does feel a little "lightheaded." He has no other complaints. He denies recent illness. Denies cough or congestion. Denies fever chills. He denies nausea or vomiting. He denies chest pain or shortness of breath. Allergies: Coded Allergies: MILK (Verified Allergy, Unknown, 06/22/17) SOY (Verified Allergy, Unknown, 06/22/17) COVID-19 Screening Contact w/high risk pt: No Experienced COVID-19 symptoms?: No COVID-19 Testing performed FURNITURE UPHOLSTERER: No Patient History Past Medical History: see triage record, old chart reviewed, DM, HTN, ME, CAD Past Surgical History: CABG Social History: Denies: smoking, alcohol use, drug use Reviewed Nursing Documentation: PMH: Agreed; PSxH: Agreed Nursing Documentation-PMH Past Medical History: No History, Except For Hx Cardiac Problems: Yes - Blind in left eye/double bypass 2012 Hx Hypertension: Yes Hx Diabetes: Yes Hx Cancer: No Hx Gastrointestinal Problems: No Hx Neurological Problems: No Review of Systems All Other Systems: negative except mentioned in HPI Physical Exam Vital Signs Date Time Temp Pulse Resp B/P (MAP) Pulse Ox O2 Delivery O2 Flow Rate FiO2 08/16/20 15:46 98.6 94 18 205/120 (148) 98 Room Air Sp02 EP Interpretation: reviewed, normal General Appearance: no apparent distress, alert, GCS 15, non-toxic Head: normocephalic, atraumatic Eyes: bilateral eye normal inspection, bilateral eye PERRL ENT: hearing grossly normal, normal pharynx, no angioedema, normal voice, other - expistaxis from R. nares Neck: normal inspection, full range of motion Respiratory: no respiratory distress, no retraction, no accessory muscle use, speaking full sentences Cardiovascular #1: regular rate, rhythm, no edema Gastrointestinal: normal inspection, non-distended Rectal: deferred Musculoskeletal: back normal, normal range of motion, gait/station normal, non- tender Neurologic: alert, motor strength/tone normal, oriented x3, sensory intact, responsive, speech normal Psychiatric: judgement/insight normal, memory normal, mood/affect normal, no suicidal/homicidal ideation Skin: no rash, normal color Medical Decision Making Diagnostic Impression: Primary Impression: Epistaxis ER Course The patient presented with epistaxis to his right nare. This was controlled with pressure. Afrin was also used and pressure was applied. There was good control. The patient's laboratory work-up is benign, specifically no evidence of anemia and normal coagulation studies. The patient's creatinine is at baseline. The patient did have an elevated blood sugar at 280. I suspect this is secondary to medication noncompliance. Unfortunately, the patient was unable to tell me any of his medications. I do not have an up-to-date list of this patient's medications. Overall, the patient is well-appearing and nontoxic. He is instructed to go home and take all of his prescribed medications. He is given close return precautions and follow-up instructions. Laboratory Tests Test 08/16/20 17:00 White Blood Count 11.1 K/UL (4.8-10.8) H Red Blood Count 5.36 M/UL (4.70-6.10) Hemoglobin 15.5 G/DL (14.2-18.0) Hematocrit 47.2 % (42.0-52.0) Mean Corpuscular Volume 88 FL (80-99) Mean Corpuscular Hemoglobin 28.9 PG (27.0-31.0) Mean Corpuscular Hemoglobin Concent 32.8 G/DL (32.0-36.0) Red Cell Distribution Width 13.8 % (11.6-14.8) Platelet Count 208 K/UL (150-450) Mean Platelet Volume 6.5 FL (6.5-10.1) Neutrophils (%) (Auto) 79.8 % (45.0-75.0) H Lymphocytes (%) (Auto) 10.0 % (20.0-45.0) L Monocytes (%) (Auto) 6.7 % (1.0-10.0) Eosinophils (%) (Auto) 2.7 % (0.0-3.0) Basophils (%) (Auto) 0.8 % (0.0-2.0) Prothrombin Time 11.5 SEC (9.30-11.50) Prothrombin Time INR 1.0 (0.9-1.1) Activated Partial Thromboplast Time 27 SEC (23-33) Sodium Level 132 MMOL/L (136-145) L Potassium Level 4.6 MMOL/L (3.5-5.1) Chloride Level 99 MMOL/L (98-107) Carbon Dioxide Level 28 MMOL/L (21-32) Anion Gap 5 mmol/L (5-15) Blood Urea Nitrogen 36 mg/dL (7-18) H Creatinine 1.5 MG/DL (0.55-1.30) H Estimated Glomerular Filtration Rate 46.1 mL/min (>60) Glucose Level 284 MG/DL (74-106) H Calcium Level 9.5 MG/DL (8.5-10.1) Total Bilirubin 0.5 MG/DL (0.2-1.0) Aspartate Amino Transferase (AST) 10 U/L (15-37) L Alanine Aminotransferase (ALT) 25 U/L (12-78) Alkaline Phosphatase 71 U/L (46-116) Total Protein 6.8 G/DL (6.4-8.2) Albumin 3.8 G/DL (3.4-5.0) Globulin 3.0 g/dL Albumin/Globulin Ratio 1.3 (1.0-2.7) Last Vital Signs Date Time Temp Pulse Resp B/P (MAP) Pulse Ox O2 Delivery O2 Flow Rate FiO2 08/16/20 15:50 98.6 85 18 136/81 98 Room Air Status: improved Disposition: HOME, SELF-CARE Condition: Improved Referrals: [facility],REFERRING (PCP) Patient Instructions: Antonio, Eofk-tr-Ohhy Zenaida Benavides DO Aug 16, 2020 18:06
[2020-08-16 19:40] VITALS: BP 133/82
== END 2020-08-16 19:40 | disposition home or self-care (01) ==
LOC: EDBD 15:44 → EMR 16:00
DX: R04.0 Epistaxis (principal); I10 Essential (primary) hypertension; E11.9 Type 2 diabetes mellitus without complications; H54.40 Blindness, one eye, unspecified eye; I25.2 Old myocardial infarction; I25.10 Atherosclerotic heart disease of native coronary artery without angina pectoris; Z95.1 Presence of aortocoronary bypass graft
CPT/HCPCS: 36415; 80053; 82962; 85025; 85610; 85730; 99283

== ENCOUNTER 2020-08-16 23:22 | Emergency (ER) | payer OTHER ==
[~2020-08-16] VITALS: Ht 177.8 cm; Wt 127.0 kg
[~2020-08-16 23:22] MED LIST changes: +TRAZODONE HCL150 MG ORAL
--- NOTE | 2020-08-16 23:55 | Emergency Room Report ---
History of Present Illness General Chief Complaint: Nosebleed Source: Patient Present Illness HPI This a 69-year-old male with a history of atrial fibrillation on Eliquis. He presents with chief complaint of nosebleed. He was here earlier today with nosebleed that stopped with pressure. He said he came home and they start profusely bleeding again. He denies any trauma. No fever chills but no nausea no vomiting. He is taking a blood thinner but does not know the name. His chart showed that he is is on Eliquis. Syncope no trauma. 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: No Patient History Past Medical History: see triage record, old chart reviewed, DM, HTN, CAD, CHF, AFib Past Surgical History: other Pertinent Family History: none Social History: Denies: smoking Immunizations: other Reviewed Nursing Documentation: PMH: Agreed; PSxH: Agreed Nursing Documentation-PMH Past Medical History: No History, Except For Hx Cardiac Problems: Yes - Blind in left eye/double bypass 2012 Hx Hypertension: Yes Hx Diabetes: Yes Hx Cancer: No Hx Gastrointestinal Problems: No Hx Neurological Problems: No Review of Systems Eye: Denies: eye pain, blurred vision ENT: Denies: ear pain, nose congestion, throat swelling Respiratory: Denies: cough, shortness of breath Cardiovascular: Denies: chest pain, palpitations Gastrointestinal: Denies: abdominal pain, diarrhea, nausea, vomiting Musculoskeletal: Denies: back pain, joint pain Skin: Denies: rash Neurological: Denies: headache, numbness Endocrine: Denies: increased thirst, increased urine Hematologic/Lymphatic: Denies: easy bruising All Other Systems: negative except mentioned in HPI Physical Exam Vital Signs Date Time Temp Pulse Resp B/P (MAP) Pulse Ox O2 Delivery O2 Flow Rate FiO2 08/16/20 23:35 98.1 72 22 132/78 (96) 94 Room Air Vitals normal Sp02 EP Interpretation: reviewed, normal General Appearance: well appearing, no apparent distress, alert Head: normocephalic, atraumatic Eyes: bilateral eye PERRL, bilateral eye EOMI ENT: hearing grossly normal, normal pharynx, other - Right nares with large clots. There is brisk bleeding after I had him blow his nose. Neck: full range of motion, supple, no meningismus Respiratory: chest non-tender, lungs clear, normal breath sounds Cardiovascular #1: regular rate, rhythm, no murmur Gastrointestinal: normal bowel sounds, non tender, no mass, no organomegaly, no bruit, non-distended Musculoskeletal: back normal, normal range of motion, gait/station normal Psychiatric: mood/affect normal Procedures Additional Procedure Procedure Narrative Procedure: Epistaxis control Indication: Epistaxis Description: I place a 7.5 cm Rhino Rocket and inflated it. This controlled the bleeding. Patient tolerated procedure without any problem. no complication. Medical Decision Making Diagnostic Impression: Primary Impression: Epistaxis ER Course This patient presents with epistaxis. Bleeding is controlled. We will have him hold his Eliquis and aspirin for a few days. He is in sinus rhythm here. Last Vital Signs Date Time Temp Pulse Resp B/P (MAP) Pulse Ox O2 Delivery O2 Flow Rate FiO2 08/16/20 23:35 98.1 72 22 132/78 (96) 94 Room Air Status: improved Disposition: HOME, SELF-CARE Condition: Stable Referrals: [facility],REFERRING (PCP) Patient Instructions: Nosebleed Additional Instructions: Hold your aspirin and blood thinner for 3 days. Follow-up with your doctor in 2 to 3 days for recheck and packing removal. Return if worse. Rip Villarreal MD Aug 16, 2020 23:55
[2020-08-17 00:09] VITALS: BP 132/78
[2020-08-17 00:53] VITALS: BP 129/78
== END 2020-08-17 00:45 | disposition home or self-care (01) ==
LOC: EMR 23:46
DX: R04.0 Epistaxis (principal); E11.9 Type 2 diabetes mellitus without complications; H54.62 Unqualified visual loss, left eye, normal vision right eye; I11.0 Hypertensive heart disease with heart failure; I50.9 Heart failure, unspecified; Z79.01 Long term (current) use of anticoagulants; I25.10 Atherosclerotic heart disease of native coronary artery without angina pectoris; Z91.011 Allergy to milk products
CPT/HCPCS: 99283

== ENCOUNTER 2020-08-19 10:09 | Emergency (ER) | payer OTHER ==
[~2020-08-19] VITALS: Ht 172.7 cm; Wt 122.5 kg
[2020-08-19 10:26] VITALS: BP 142/80
--- NOTE | 2020-08-19 10:28 | NUR ---
ED Nurse Note: Patient from home and came in due to reports of nasal bleeding coming out from his right nostril. Patient was seen here twice this week for continuous epistaxis and was discharged with a rhino rocket. Pt is AAOx,4 ambulates with assistance with no respiratory distress. Pt speaks in clear sentences with rhino rocket and old blood form his right nostril.
--- NOTE | 2020-08-19 10:32 | NUR ---
ED Nurse Note: Dr Miramontes at the bed side and removed rhino rocket. No active bleeding noted at this time. Respirations are even and non labored.
--- NOTE | 2020-08-19 10:40 | NUR ---
ED Nurse Note: RN cleansed dried blood on patient's face with hydrogen peroxide then patted dry. Still no active bleeding from nostril.
--- NOTE | 2020-08-19 10:45 | Emergency Room Report ---
History of Present Illness General Chief Complaint: Nosebleed Source: Patient Present Illness HPI Patient was seen twice on August 16. He presented with epistaxis from the right nose. Initially was controlled with Afrin and pressure. He then returned later and required having a Rhino Rocket placed. The patient is on aspirin and Eliquis for paroxysmal atrial flutter. No antibiotics prescribed. He states he has discomfort in his right nose but denies pain to the triage nurse. The patient complains about chronic pain in his lower extremities. He states that this has not changed since he stopped the Eliquis and aspirin. No fevers, chills, sore throat, chest pain, palpitations, nausea, vomiting, diarrhea, dysuria, abdominal pain, rashes, depression, anxiety, dizziness, headache. Blind L eye. Glaucoma, Last admitted 2016. D/C dx: 1. Nausea, vomiting, and constipation. 2. Paroxysmal Atrial flutter. 3. Hypertensive heart disease. 4. Chronic kidney disease. 5. Chronic systolic and diastolic congestive heart failure. 6. Coagulopathy due to Eliquis. 7. Recovered gastroparesis. 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 Reviewed Nursing Documentation: PMH: Agreed; PSxH: Agreed Nursing Documentation-PMH Past Medical History: No History, Except For Hx Cardiac Problems: Yes - Blind in left eye/double bypass 2012 Hx Hypertension: Yes Hx Diabetes: Yes Hx Cancer: No Hx Gastrointestinal Problems: No Hx Neurological Problems: No Review of Systems All Other Systems: negative except mentioned in HPI Physical Exam Vital Signs Date Time Temp Pulse Resp B/P (MAP) Pulse Ox O2 Delivery O2 Flow Rate FiO2 08/19/20 10:19 97.2 86 19 142/80 (100) 98 Room Air Sp02 EP Interpretation: reviewed, normal General Appearance: no apparent distress, alert, Chronically Ill Head: normocephalic, atraumatic Eyes: left eye other - abnormal pupil; bilateral eye EOMI ENT: moist mucus membranes, other - Rhinorocket R nose, no active bleeding Respiratory: lungs clear Cardiovascular #1: regular rate, rhythm, systolic murmur - 2/6 holosystolic , edema - trace bilat LE Cardiovascular #2: 2+ radial (R) Gastrointestinal: non tender, soft, overweight Musculoskeletal: tender - bilateral LE Neurologic: motor strength/tone normal, oriented, sensory intact, other - de creased hearing Psychiatric: mood/affect normal Skin: warm/dry, other - sallo Procedures Additional Procedure Procedure Narrative Removed Rhino-rocket. 1030 - no active bleeding. Medical Decision Making Diagnostic Impression: Primary Impression: H/O epistaxis Additional Impressions: Systolic and diastolic CHF, chronic Azotemia ER Course Patient presents 3 days after 2 presentations for right epistaxis. A Rhino Rocket was placed. There is been no further bleeding. He also held Eliquis and aspirin. In addition he has a history of atrial fibrillation however he has normal sinus rhythm on the monitor at this time and denies any chest pain. His exam suggests valvular heart disease. The plan is to remove the Rhino Rocket and observe the patient for further bleeding at this time. Labs reviewed. Rhino Rocket removed with improved symptoms. No active bleeding. Patient observed in no bleeding. Discussed treatment plan with patient and the need for reevaluation as an outpatient. Also discussed restarting Eliquis and aspirin. Patient advised to return if bleeding reoccurs. Patient stable for outpatient observation and treatment. Rhythm Strip Diag. Results EP Interpretation: yes Rhythm: NSR, no PVC's, no ectopy Last Vital Signs Date Time Temp Pulse Resp B/P (MAP) Pulse Ox O2 Delivery O2 Flow Rate FiO2 08/19/20 12:13 97.8 75 15 145/90 100 Room Air Status: improved Disposition: HOME, SELF-CARE Condition: Improved Oleksandr Miramontes MD Aug 19, 2020 10:45
[2020-08-19 12:13] VITALS: BP 145/90
--- NOTE | 2020-08-19 12:13 | NUR ---
ER DISCHARGE NOTE: Patient is cleared to be discharged per ERMD, pt is aox4, on room air, with stable vital signs. pt was given dc instructions, pt was able to verbalize understanding, pt id band removed. pt is able to ambulate wheelchair assistance. pt took all belongings and left with his girlfriend.
== END 2020-08-19 12:13 | disposition home or self-care (01) ==
LOC: EMR 11:40
DX: I13.0 Hypertensive heart and chronic kidney disease with heart failure and stage 1 through stage 4 chronic kidney disease, or unspecified chronic kidney disease (principal); R79.89 Other specified abnormal findings of blood chemistry; I50.42 Chronic combined systolic (congestive) and diastolic (congestive) heart failure; Z79.01 Long term (current) use of anticoagulants; Z79.82 Long term (current) use of aspirin; E11.22 Type 2 diabetes mellitus with diabetic chronic kidney disease; N18.9 Chronic kidney disease, unspecified; Z91.011 Allergy to milk products; R04.0 Epistaxis
CPT/HCPCS: 99282